=== PATIENT | male | born 1990 | race African-American/Black ===

== ENCOUNTER 2018-10-30 10:33 | Emergency (ER) | payer OTHER ==
[~2018-10-30] VITALS: Ht 160 cm; Wt 68.0 kg
[2018-10-30 10:50] VITALS: BP 130/81
== END 2018-10-30 12:01 | disposition home or self-care (01) ==
LOC: ER 10:33
DX: M26.69 Other specified disorders of temporomandibular joint (principal)
CPT/HCPCS: 99281

== ENCOUNTER 2019-02-05 12:35 | Emergency (ER) | payer OTHER ==
[~2019-02-05] VITALS: Ht 160 cm; Wt 68.0 kg
[2019-02-05] MEDS ORDERED: KETOROLAC 30MG/ML VIAL IM ONE (14:15)
[2019-02-05 15:10] VITALS: BP 134/76
== END 2019-02-05 15:20 | disposition home or self-care (01) ==
LOC: ER 12:47
DX: S16.1XXA Strain of muscle, fascia and tendon at neck level, initial encounter (principal); X50.3XXA Overexertion from repetitive movements, initial encounter; X50.1XXA Overexertion from prolonged static or awkward postures, initial encounter; Y93.89 Activity, other specified; Y92.520 Airport as the place of occurrence of the external cause
CPT/HCPCS: 72040; 96372; 99283; J1885

== ENCOUNTER 2021-03-31 05:40 | Emergency (ER) | payer OTHER, SELFPAY ==
[~2021-03-31] VITALS: Ht 160 cm; Wt 69.0 kg
[2021-03-31 05:47] VITALS: BP 155/95
[2021-03-31] MEDS ORDERED: TOPUD PO (06:10)
[2021-03-31] MEDS ORDERED: ACETAMINOPHEN 325MG TABLET PO ONE (06:15)
== END 2021-03-31 07:03 | disposition home or self-care (01) ==
LOC: ER 05:40
DX: U07.1 COVID-19 (principal); J02.9 Acute pharyngitis, unspecified
CPT/HCPCS: 99282